=== PATIENT | female | born 1960 | race Caucasian/White ===

== ENCOUNTER 2025-10-11 06:17 | Day surgery (SDC) | payer OTHER, SELFPAY ==
--- OUTSIDE RECORDS SUMMARY | 2025-09-13 14:27 | XMS_ITS | Clinical Summary ---
Author Organization [facility] Address [address] [place] [address] Phone Care Team Providers Care Cnc Operator Programmer Name Role Phone Unavailable Primary Care Provider Unavailabl e Social History Tobacco Use Types Packs/Day Years Used Date Smoking Tobacco: Never Assessed Comments Unknown Sex and Gender Information Value Date Recorded Sex Assigned at Not on file Legal Sex Female 11:25 AM EST Gender Identity Not on file Sexual Orientation Not on file Plan of Treatment Upcoming Encounters Date Type Department Care Team (Late st Contact Info) Description 09/22/2025 7:30 AM EST Appointment [facility] [address] [place] [phone] 09/22/2025 8:15 AM EST [facility]ointment [facility] [address] [phone] Health Maintenance Due Date Last Done Comments Colorectal Cancer Screening: Colonoscopy 1960 DTaP,Tdap,and Td Vaccines (1 - Tdap) 1979 Cervical Cancer Screening: Pap Smear 1981 Zoster Vaccines (1 of 2) 2010 HIV Screening 09/18/2022 Hepatitis C Screening 09/18/2022 Social Influencers of Health Screening 09/18/2022 Depression Screening 10/21/2024 COVID-19 Vaccine ( season) 2025 07/12/2023, 08/03/2022, 09/27/2021, Additional history exists Influenza Vaccine (#1) 2025 , 07/30/2023, 06/27/2023, Additional history exists Breast Cancer Screening 07/21/2026 07/21/20 24, 07/19/2023, 07/04/2022, Additional history exists RSV Immunization Adult Patients (1 - 1-dose 75+ series) 2035 Pneumococcal Vaccine: 50+ Years Completed 07/30/2023 HIB Vaccines Aged Out No longer eligi ble based on patient's age to complete this topic HPV Vaccines Aged Out No longer eligi ble based on patient's age to complete this topic Hepatitis A Vaccines Aged Out No long er eligible based on patient's age to complete this topic Hepatitis B Vaccines Aged Out No long er eligible based on patient's age to complete this topic IPV Vaccines Aged Out No longer eligi ble based on patient's age to complete this topic MMR Vaccines Aged Out No longer eligi ble based on patient's age to complete this topic Meningococcal ACWY Vaccine Aged Out N o longer eligible based on patient's age to complete this topic Meningococcal B Vaccine Aged Out No l onger eligible based on patient's age to complete this topic RSV Immunization Patients Under 20 months Aged Out No longer eligible based on patient's age to complete this topic Varicella Vaccines Aged Out No longer eligible based on patient's age to complete this topic Procedures Procedure Name Priority Date/Time Associated Diagnosis Comments [facility] SCREENING DIGITAL Routine 07/21/2024 2:53 PM EDT Encounter for screening mammogram for malignant neoplasm of breast from Last 3 Months or Most Recently Relevant to Health Maintenance Results * ANDREW SCREENING DIGITAL (07/21/2024 2:53 PM EDT) Anatomical Region Laterality Modality Mammography 07/21/2024 7:23 AM EDT Narrative 07/21/2024 2:53 PM EDT [facility] Diagnostic Imaging Department [address] [place] [id number] Patient: ANUM BOLANOS/Age/Sex: 1960 - 63 - F Unit#: [id number] Location/Status: SPDIMAM/REG CLI Mnemonic/Ordering Site: [facility] Ordering Physician: ERINN MACK MD [facility] Screening Digital - 07/21/24800 Report Status:Signed EXAM: [facility] Screening Digital EXAM DATE AND TIME: 07/21/2024 8:02 AM HISTORY: Screening. Augmentation mammoplasty in 2006. Family history of breast carcinoma including mother at age 66 and paternal aunt. COMPARISON: 07/19/23, 07/04/22, 06/28/21 TECHNIQUE: Standard CC and MLO views of both breasts were obtained using full field digital mammography. Bilateral implant displaced digital breast tomosynthesis was performed in the CC and MLO projections. Computer aided detection with [employer] 7.2-H and Foll[employer] 3D 3.1 was employed. TISSUE DENSITY: c. The breasts are heterogeneously dense, which may obscure small masses. FINDINGS: No suspicious masses, grouped microcalcifications, or areas of architectural distortion are seen. The skin and vascularity are unremarkable. Bilateral subpectoral saline implants are again seen. IMPRESSION: Stable mammographic appearance of the breasts. No evidence of malignancy is seen. A negative mammogram in the presence of a clinically suspicious palpable abnormality does not preclude the possibility of malignancy or alter the indications for biopsy. BI-RADS: Category 1: Negative RECOMMENDATION(S): 1: Routine screening mammogram BILATERAL in 1 year. Mammogram performed at [facility] [place] [address] Dictating Physician: ALLA PARIKH MD Electronically Signed by: ALLA PARIKH MD Dic Date/Time: 07/21/241452 Sign date/Time: 07/21/241452 Procedure Note Alla Parikh MD - 08/18/2024 [facility] Diagnostic Imaging Department [address] [place] [address] [id number] Patient: ANUM BOLANOS SIDNEY Thakur/Age/Sex: 1960 - 63 - F Unit#: [id number] Location/Status: [facility] CLI Mnemonic/Ordering Site: [facility] Ordering Physician: ERINN MACK MD [facility] Screening Digital - 07/21/24800 Report Status:Signed EXAM: [facility] Screening Digital EXAM DATE AND TIME: 07/21/2024 8:02 AM HISTORY: Screening. Augmentation mammoplasty in 2006. Family history ofbreast carcinoma including mother at age 66 and paternal aunt. COMPARISON: 07/19/23, 07/04/22, 06/28/21 TECHNIQUE: Standard CC and MLO views of both breasts were obtained usingfull field digital mammography. Bilateral implant displaced digital breast tomosynthesis was performed in the CC and MLO projections. Computeraided detection with [employer] 7.2-H and Folloy[employer] 3D 3.1 wasemployed. TISSUE DENSITY: c. The breasts are heterogeneously dense, which mayobscure small masses. FINDINGS: No suspicious masses, grouped microcalcifications, or areas ofarchitectural distortion are seen. The skin and vascularity are unremarkable. Bilateral subpectoral saline implants are again seen. IMPRESSION: Stable mammographic appearance of the breasts. No evidence of malignancyis seen. A negative mammogram in the presence of a clinically suspicious palpable abnormality does not preclude the possibility of malignancy or alter the indications for biopsy. BI-RADS: Category 1: Negative RECOMMENDATION(S): 1: Routine screening mammogram BILATERAL in 1 year. [facility] performed at [facility] at [address] [address] Dictating Physician: ALLA PARIKH MD Electronically Signed by: ALLA PARIKH MD Dic Date/Time: 07/21/241452 Sign date/Time: 07/21/241452 Erinn Mack MD IMG BI PROCEDURES Final Re sult from Last 3 Months or Most Recently Relevant to Health Maintenance Insurance [facility]
--- NOTE | 2025-10-07 10:18 | P.CONAN_ITS ---
Documented by User: Karyn Velazquez NP 10/07/25 10:19 HPI - Anesthesia Eval Consult details Narrative: 64yo F [facility] Past Medical History Medical History No pertinent past medical history Surgical History Surgical History Hx of section H/O colonoscopy (~2019) Social History Social History Patient Tobacco Use Status: Never used Tobacco Use of substances other than those prescribed or required for medical reasons: No Are you DNR?: No Advance Directives: No Advance Directives Information Provided: Yes Meds Allergies Allergy/AdvReac Type Severity Reaction Status Date / Time amoxicillin (From AUGMENTIN) Allergy Intermediate RASH Verified 10/11/25 07:25 clavulanic acid (From Allergy Intermediate RASH Verified 10/11/25 07:25 AUGMENTIN) Sulfa (Sulfonamide Allergy Unknown RASH Verified 10/11/25 07:25 Antibiotics) (SULFA(SULFONAMIDE ANTIBIOTICS)) Home Medications ?Medication ?Instructions ?Recorded ?Confirmed ?Last Taken ?Type estradiol 10 mcg vaginal tablet 10 mcg vaginal 2XW 10/07/25 Unknown History (Yuvafem) multivitamin 1 tab PO DAILY 10/07/2509/20 Unknown History Assessment and Plan Assessment Anesthesia Assessment: Chart Reviewed Documented by User: Christian Perry MD 10/11/25 07:30 [facility] Past Medical History Medical History No pertinent past medical history Cognitive capacity: normal Family History Family history of problems with anesthesia: No Surgical History Surgical History Hx of section H/O colonoscopy (~2019) History of Problems with Anesthesia: No Social History Social History Patient Tobacco Use Status: Never used Tobacco Use of substances other than those prescribed or required for medical reasons: No Are you DNR?: No Advance Directives: No Advance Directives Information Provided: Yes Meds Allergies Allergy/AdvReac Type Severity Reaction Status Date / Time amoxicillin (From AUGMENTIN) Allergy Intermediate RASH Verified 10/11/25 07:25 clavulanic acid (From Allergy Intermediate RASH Verified 10/11/25 07:25 AUGMENTIN) Sulfa (Sulfonamide Allergy Unknown RASH Verified 10/11/25 07:25 Antibiotics) (SULFA(SULFONAMIDE ANTIBIOTICS)) Home Medications ?Medication ?Instructions ?Recorded ?Confirmed ?Last Taken ?Type estradiol 10 mcg vaginal tablet 10 mcg vaginal 2XW 10/07/25 Unknown History (Yuvafem) multivitamin 1 tab PO DAILY 10/07/2509/20 Unknown History Exam Exam Date and Time: 10/11/2026 Airway Mallampati Class: II TM Dist: >3cm Neck ROM: Full Heart: normal Lungs: normal Other: normal Assessment and Plan Assessment Anesthesia Assessment: Anesthesia Plan Discussed Final Anesthetic Review Family History of Problems with Anesthesia: No History of Problems with Anesthesia: No NPO: Yes ASA Class: I Final Preanesthetic Review: No Changes in Pt Med Stat, Meds/Allgs Chart Reviewed, Consent Obtained/Reviewed and Anes Risks/Benef Reviewed Patient Risk: Low Procedure Risk: Low Anesthetic Plan Anesthetic Plan: MAC: Disposition: Standard PACU
[2025-10-11 06:30] VITALS: BMI 25.1
[2025-10-11 06:36] VITALS: BP 136/78; PULSE 90; RESP 14; TEMP 37.1; O2SAT 96
[2025-10-11] MEDS: Lactated Ringers 1,000 ML 100 ML IVCONT (07:25)
[2025-10-11 08:35] VITALS: BP 86/44; PULSE 70; RESP 16; TEMP 36.2; O2SAT 97
--- NOTE | 2025-10-11 08:39 | P.BOP_ITS ---
Brief Operative Note Date of Service: 10/11/25 Pre-op diagnosis: Screening Post-op diagnosis: other (Polyp) Procedure: Colonoscopy to the cecum with bx/removal of polyp Surgeon: Juan Manuel Rivers MD Anesthesia: MAC Was an Enterprise Systems Engineer used for this Procedure?: No Estimated blood loss (mL): 2.0 Pathology: other (A. Proximal ascending colon polyp) Condition: stable Disposition: PACU
[2025-10-11 08:50] VITALS: BP 94/47; PULSE 58; RESP 16; O2SAT 96
--- NOTE | 2025-10-11 08:57 | OP_ITS ---
DATE OF SERVICE: 10/11/2025 SURGEON: Juan Manuel Rivers MD INDICATIONS: The patient presents for evaluation of colorectal cancer screening, personal history of tubular adenoma of the colon, and family history of colon cancer. Full consent was obtained from her for this, including risks of bleeding and perforation. PREOPERATIVE DIAGNOSIS: POSTOPERATIVE DIAGNOSIS: PROCEDURE PERFORMED: Colonoscopy to the cecum with biopsy and removal of polyp. ESTIMATED BLOOD LOSS: COMPLICATIONS: ANESTHESIA: Medication used, monitored anesthesia care. ASSISTANTS: SPECIMENS: PREOPERATIVE DIAGNOSES: Colorectal cancer screening, personal history of tubular adenoma of the colon, and family history of colon cancer. POSTOPERATIVE DIAGNOSES: Colorectal cancer screening, personal history of tubular adenoma of the colon, and family history of colon cancer, small colon polyp, diverticulosis, and internal hemorrhoids. DESCRIPTION OF PROCEDURE: The patient was placed in the left lateral decubitus position. The digital rectal exam revealed no abnormalities. The Olympus video pediatric colonoscope was entered into the rectum and advanced easily to the cecum. Once in the cecum I did identify normal-appearing cecal pouch with appendiceal orifice, a normal-appearing ileocecal valve. The entire cecum was well visualized and appeared normal. There was transillumination of light deep in the lower quadrant. The scope was slowly withdrawn assessing all mucosal surfaces carefully. Preparation was excellent. In the very proximal ascending colon just outside the ileocecal valve, 5 mm polyp, which was removed completely with cold biopsy forceps in piecemeal fashion. I did not visualize any other polyps, colitis, nor angiodysplasia. There was a mild amount of sigmoid diverticulosis. In the rectum, scope was retroflexed visualizing internal hemorrhoids, but no other pathology. The rectal mucosa appeared normal. The scope was straightened and withdrawn from the patient. She tolerated procedure well and was returned to recovery area in stable condition. IMPRESSION: 1. Colon polyp. 2. Diverticulosis. 3. Internal hemorrhoids. PLAN: The results of the biopsy will be checked. I would recommend a repeat colonoscopy in 5 years for further screening. She will otherwise see me as needed. MD TAPAN Garces/YUNIER / [id number]
[2025-10-11 09:05] VITALS: BP 100/56; PULSE 54; RESP 16; O2SAT 97
[2025-10-11 09:15] VITALS: BP 108/61; PULSE 60; RESP 18; TEMP 36.4; O2SAT 99
== END 2025-10-11 09:37 | disposition home or self-care (01) ==
PROVIDERS: Visit Provider Internal Medicine
PROC: 0DJD8ZZ Inspection of Lower Intestinal Tract, Via Natural or Artificial Opening Endoscopic (ICD-10-PCS; CPT 45378; principal; 2025-10-11 07:30)
DX: Z12.11 Encounter for screening for malignant neoplasm of colon (principal); Z80.0 Family history of malignant neoplasm of digestive organs; Z86.0101 Personal history of adenomatous and serrated colon polyps; K57.30 Diverticulosis of large intestine without perforation or abscess without bleeding; K64.8 Other hemorrhoids; D12.2 Benign neoplasm of ascending colon
CPT/HCPCS: 45380; 88305; J2003; J2704; J3010